=== PATIENT | male | born 1980 | race Caucasian/White ===

== ENCOUNTER 2017-05-04 09:21 | Emergency (ER) | payer OTHER ==
[2017-05-04 09:30] VITALS: BP 140/108; PULSE 80; RESP 14; TEMP 98.6; O2SAT 98
--- NOTE | 2017-05-04 09:44 | EDPHY ---
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 2 months ago they were required to switch shoes to a very flat soled shoe that has good political aide. Ever since that time he has had increasing pain at his heel and arch particularly on the right foot. After couple of weeks he switched to a different she that had more cushion but continues to have pain. He has been trying to use insoles. He has been waking up an hour early every day to go through foot exercises including bands and foam roller is. He states that it feels better after while but after spends a couple of hours at work it hurts to the point where he has to limp or stay off of his heel when he walks. No fevers. No punctures or lacerations. No ankle or toe pain. REVIEW OF SYSTEMS: Constitutional: denies: chills, fever, recent illness, recent injury EENTM: denies: blurred vision, double vision, nose congestion Respiratory: denies: cough, shortness of breath Cardiac: denies: chest pain, irregular heart rate, lightheadedness, palpitations Gastrointestinal/Abdominal: denies: abdominal pain, diarrhea, nausea, vomiting, blood streaked stools Genitourinary: denies: dysuria, frequency, hematuria, pain Musculoskeletal: See HPI Skin: denies: lesions, rash, jaundice, bruising Neurological: denies: headache, numbness, paresthesia, tingling, dizziness, weakness Hematologic/Lymphatic: denies: blood clots, easy bleeding, easy bruising Immunologic/allergic: denies: HIV/AIDS, transplant EXAM: GENERAL: Well-appearing, well-nourished and in no acute distress. HEAD: Atraumatic, normocephalic. EYES: Pupils equal round and reactive to light, extraocular movements intact, sclera anicteric, conjunctiva are normal. ENT: TMs normal, nares patent, oropharynx clear without exudates. Moist mucous membranes. NECK: Normal range of motion, supple without lymphadenopathy or JVD. LUNGS: Breath sounds clear to auscultation bilaterally and equal. No wheezes rales or rhonchi. HEART: Regular rate and rhythm without murmurs, rubs or gallops. ABDOMEN: Soft, nontender, normoactive bowel sounds. No guarding, no rebound. No masses appreciated. BACK: No CVA tenderness, no spinal tenderness, step-offs or deformities EXTREMITIES: Patient has tenderness to the proximal aspect of the long plantar ligament. No swelling or deformity. No pain in the arch or toes. No tenderness over the Achilles or ankle. NEUROLOGICAL: Cranial nerves II through XII grossly intact. Normal speech, normal gait. 5/5 strength, normal movement in all extremities, normal sensation PSYCH: Normal mood, normal affect. SKIN: Warm, dry, normal turgor, no visible rashes or lesions. Source: Patient Exam Limitations: No limitations - Personal History Current Tetanus Diphtheria and Acellular Pertussis (TDAP): No - Medical/Surgical History Hx Asthma: No Hx Chronic Respiratory Disease: No Hx Diabetes: No Hx Cardiac Disease: No Hx Renal Disease: No Hx Cirrhosis: No Hx Alcoholism: No Hx HIV/AIDS: No Hx Splenectomy or Spleen Trauma: No Other PMH: Tibia/fibula fx left leg (14 yrs ago). - Family History Significant Family History: No pertinent family hx - Social History Smoking Status: Never smoked Alcohol Use: Sober Drug Use: None Constitutional: Initial Vital Signs Temperature (C) 37 C 05/04/17 09:25 Heart Rate 80 05/04/17 09:25 Respiratory Rate 14 05/04/17 09:25 Blood Pressure 140/108 H 05/04/17 09:25 O2 Sat (%) 98 05/04/17 09:25 O2 Delivery Mode Room Air Allergies/Adverse Reactions: cefaclor [From Ceclor] Allergy (Verified 05/04/17 09:30) Medical Decision Making - Diagnostics Imaging Results: Imaging Impressions Foot X-Ray 05/04/17 09:41 Impression: Small enthesophyte at the plantar insertion of the calcaneus. Otherwise unremarkable. Imaging: Discussed imaging studies w/ hotel director Radiologist ED Course/Re-evaluation: We discussed the x-ray results. I suspect the patient has plantar fasciitis. I will give him some work restrictions and have encouraged rest and anti- inflammatories. I will refer him to Podiatry for further evaluation, orthotics and possibly steroid injections. He is happy with this plan and declines further workup or testing at this time. Differential Diagnosis: Partial list of the Differential diagnosis considered include but were not limited to; bone spur, plantar fasciitis and although unlikely based on the history and physical exam, I also considered infection, trauma. I discussed these differential diagnoses and the plan with the patient as well as the usual and expected course. The patient understands that the diagnosis is provisional and that in medicine we are not always correct and that further workup is often warranted. Usual and customary warnings were given. All of the patient's questions were answered. The patient was instructed to return to the emergency department should the symptoms at all worsen or return, otherwise to followup with the physician as we discussed. Departure - Departure Disposition: Home, Routine, Self-Care Clinical Impression: Plantar fasciitis of right foot Condition: Fair Instructions: Plantar Fasciitis (ED) Referrals: NONE *PRIMARY CARE P,. [Primary Care Provider] - As per Instructions Jared Barton DPM [Doctor of Podiatric Medicine] - As per Instructions Stand Alone Forms: Work Limited Duty
== END 2017-05-04 10:18 | disposition home or self-care (01) ==
LOC: CED 09:21
DX: M72.2 Plantar fascial fibromatosis (principal)
CPT/HCPCS: 73620-PO